=== PATIENT | female | born 2000 | race American Indian/Alaskan Native ===

== ENCOUNTER 2020-11-06 12:15 | Emergency (ER) | payer SELFPAY ==
[2020-11-06 12:23] VITALS: BP 114/72
--- NOTE | 2020-11-06 12:34 | Emergency Department Report ---
- General Chief Complaint: Medical Clearance Stated Complaint: CANT EAT Time Seen by Provider: 11/06/20 12:22 Source: patient Mode of arrival: Ambulatory Limitations: No Limitations - History of Present Illness Initial Comments: Patient is a 20-year-old female presents emergency room complaints of viral-like symptoms that began 6 days ago. She has associated sore throat, anterior neck discomfort, fatigue, generalized weakness, nausea, mild occasional dry cough. She states that she is only had one episode of vomiting during the last 6 days. She is able to tolerate p.o. intake. She states that she has a loss of appetite. She states that she lost her sense of smell and taste. She is still able to drink liquids. She states that she has not been wanting to eat food due to the lack of taste. She denies any fever, diarrhea, abdominal pain, chest pain, neck stiffness, headache shortness of breath. She has a past medical history of asthma. No allergies to medications. Last menstrual cycle last month. - Related Data Allergies Allergy/AdvReac Type Severity Reaction Status Date / Time No Known Allergies Allergy Unverified 02/19/20 18:43 ED Review of Systems ROS: Stated complaint: CANT EAT Other details as noted in HPI Comment: All other systems reviewed and negative ED Past Medical Hx - Past Medical History Previous Medical History?: Yes Hx Asthma: Yes - Social History Smoking Status: Never Smoker Substance Use Type: Marijuana ED Physical Exam - General Limitations: No Limitations General appearance: alert, in no apparent distress - Head Head exam: Present: atraumatic, normocephalic - Eye Eye exam: Present: normal appearance - ENT ENT exam: Present: normal orophraynx, mucous membranes moist, TM's normal bilaterally, normal external ear exam - Neck Neck exam: Present: normal inspection, full ROM. Absent: meningismus - Respiratory Respiratory exam: Present: normal lung sounds bilaterally. Absent: respiratory distress, wheezes, rales, rhonchi, stridor, chest wall tenderness, accessory muscle use, decreased breath sounds, prolonged expiratory - Cardiovascular Cardiovascular Exam: Present: regular rate, normal rhythm, normal heart sounds. Absent: systolic murmur, diastolic murmur, rubs, gallop - Neurological Exam Neurological exam: Present: alert, oriented X3 - Psychiatric Psychiatric exam: Present: normal affect, normal mood - Skin Skin exam: Present: warm, dry, intact ED Course Vital Signs 11/06/20 12:21 Temperature 99.6 F Pulse Rate 97 H Respiratory 20 Rate Blood Pressure 114/72 O2 Sat by Pulse 97 Oximetry ED Medical Decision Making - Medical Decision Making Patient is a 20-year-old female presents emergency room complaints of viral-like symptoms that began 6 days ago. She has associated sore throat, anterior neck discomfort, fatigue, generalized weakness, nausea, mild occasional dry cough. She states that she is only had one episode of vomiting during the last 6 days. She is able to tolerate p.o. intake. She states that she has a loss of appetite. She states that she lost her sense of smell and taste. She is still able to drink liquids. She states that she has not been wanting to eat food due to the lack of taste. She denies any fever, diarrhea, abdominal pain, chest pain, neck stiffness, headache shortness of breath. She has a past medical history of asthma. No allergies to medications. Last menstrual cycle last month. Vitals are normal. Normal oropharynx, no tonsillar hypertrophy or exudates, uvula is midline, no uvular edema or deviation, breath sounds are clear bilaterally, no wheezing, no rales, no rhonchi. Symptoms appear most consistent with viral-like illness. Patient is presenting with the symptoms during COVID-19 pandemic, discussed the possibility of COVID-19 with with patient, discussed return precautions, discussed outpatient testing, discussed self quarantine. Advised patient Please increase your fluid intake over the next several days. May take Tylenol as needed for fever or body aches. May take qooh-dzl-zvvnfxk cold symptom relief medication such as Mucinex or TheraFlu. Gargle with warm salt water. Follow-up with a primary care doctor fo r reexamination. Return to emergency room immediately for any new or worsening symptoms including but not limited to difficulty breathing, shortness of breath, severe chest pain, unable to tolerate by mouth intake, etc. Please self quarantine for 10 days from the onset of your symptoms. Please do not go out in public. If you are around others at home please wear a mask. If you need to cough or sneeze please do so in a napkin and immediately throw it away and immediately wash your hands. Wash your hands frequently. Wipe everything down. Recommend for you to get COVID-19 testing, may have this done at primary care doctor, health department, [facility],etc. Critical care attestation.: If time is entered above; I have spent that time in minutes in the direct care of this critically ill patient, excluding procedure time. ED Disposition Clinical Impression: Viral illness Disposition: DC-01 TO HOME OR SELFCARE Is pt being admited?: No Does the pt Need Aspirin: No Condition: Stable Instructions: COVID-19: How to Protect Yourself and Others - CDC, Viral Illness, Adult, Prevent the Spread of COVID-19 if You Are Sick - [facility] Additional Instructions: Please increase your fluid intake over the next several days. May take Tylenol as needed for fever or body aches. May take ovbo-oxb-tlemozv cold symptom relief medication such as Mucinex or TheraFlu. Gargle with warm salt water. Follow-up with a primary care doctor for reexamination. Return to emergency room immediately for any new or worsening symptoms including but not limited to difficulty breathing, shortness of breath, severe chest pain, unable to tolerate by mouth intake, etc. Please self quarantine for 10 days from the onset of your symptoms. Please do not go out in public. If you are around others at home please wear a mask. If you need to cough or sneeze please do so in a napkin and immediately throw it away and immediately wash your hands. Wash your hands frequently. Wipe everything down. Recommend for you to get COVID-19 testing, may have this done at primary care doctor, health department, [facility],etc. Referrals: [facility] [Provider Group] - 2-3 Days TOÑO MCKENZIE MD [Staff Physician] - 2-3 Days Time of Disposition: 12:33 Print Language: ITALIAN
== END 2020-11-06 13:54 | disposition home or self-care (01) ==
LOC: ED 12:15
DX: B34.9 Viral infection, unspecified (principal); J45.909 Unspecified asthma, uncomplicated; F12.10 Cannabis abuse, uncomplicated; Z79.899 Other long term (current) drug therapy
CPT/HCPCS: 99281

== ENCOUNTER 2020-12-06 18:35 | Emergency (ER) | payer SELFPAY ==
[2020-12-06 20:21] VITALS: BP 115/73
--- NOTE | 2020-12-06 21:05 | Emergency Department Report ---
ED ENT HPI - General Chief complaint: Earache Stated complaint: CAN'T HEAR Time Seen by Provider: 12/06/20 20:58 Source: patient Mode of arrival: Ambulatory Limitations: No Limitations - History of Present Illness Initial comments: 40-year-old female with no significant past history presents to the ER today with complaints of difficulty hearing from both ears. Patient states that initially started with the left ear about a week ago and has since progressed to the right. She reports a popping sensation in the ears. She reports mild pain to the preauricular areas of the ear. She denies any drainage from the ear. She denies any injury to the ear. She denies any associated URI symptoms, fever, chills or cough. MD complaint: other (difficulty hearing ) -: Gradual (1 week ago ) - Related Data Previous Rx's Medication Instructions Recorded Last Taken Type Amoxicillin/Potassium Clav 1 each PO Q12HR #14 tablet 12/06/20 Unknown Rx [Augmentin 875-125 Tablet] Cetirizine HCl/Pseudoephedrine 1 each PO Q12HR #20 tab.er.12h 12/06/20 Unknown Rx [Zyrtec-D Tablet] Fluticasone [Flonase] 2 spray NS QDAY #1 bottle 12/06/20 Unknown Rx methylPREDNISolone [Medrol 4MG 4 mg PO DAILY #1 tab.ds.pk 12/06/20 Unknown Rx DOSEPAK (21 tabs)] Allergies Allergy/AdvReac Type Severity Reaction Status Date / Time fish derived Allergy Itching Verified 12/06/20 19:50 ED Dental HPI - General Chief complaint: Earache Stated complaint: CAN'T HEAR Time Seen by Provider: 12/06/20 20:58 Source: patient Mode of arrival: Ambulatory Limitations: No Limitations - Related Data Previous Rx's Medication Instructions Recorded Last Taken Type Amoxicillin/Potassium Clav 1 each PO Q12HR #14 tablet 12/06/20 Unknown Rx [Augmentin 875-125 Tablet] Cetirizine HCl/Pseudoephedrine 1 each PO Q12HR #20 tab.er.12h 12/06/20 Unknown Rx [Zyrtec-D Tablet] Fluticasone [Flonase] 2 spray NS QDAY #1 bottle 12/06/20 Unknown Rx methylPREDNISolone [Medrol 4MG 4 mg PO DAILY #1 tab.ds.pk 12/06/20 Unknown Rx DOSEPAK (21 tabs)] Allergies Allergy/AdvReac Type Severity Reaction Status Date / Time fish derived Allergy Itching Verified 12/06/20 19:50 ED Review of Systems ROS: Stated complaint: CAN'T HEAR Other details as noted in HPI Comment: All other systems reviewed and negative Constitutional: denies: chills, fever Eyes: denies: eye pain, eye discharge, vision change ENT: ear pain. denies: throat pain, dental pain, hearing loss, epistaxis, congestion Respiratory: denies: cough, shortness of breath, SOB with exertion, SOB at rest, wheezing Cardiovascular: denies: chest pain, palpitations, dyspnea on exertion, edema, syncope, paroxysmal nocturnal dyspnea Gastrointestinal: denies: abdominal pain, nausea, vomiting, diarrhea, constipation, hematemesis, hematochezia Genitourinary: as per HPI. denies: frequency, hematuria, discharge, abnormal menses, dyspareunia Musculoskeletal: denies: back pain, joint swelling, arthralgia Skin: denies: rash, lesions, change in color, change in hair/nails Neurological: denies: headache, weakness, paresthesias Psychiatric: denies: anxiety, depression, auditory hallucinations, visual hallucinations, homicidal thoughts, suicidal thoughts Hematological/Lymphatic: denies: easy bleeding, easy bruising ED Past Medical Hx - Past Medical History Hx Asthma: Yes - Social History Smoking Status: Never Smoker - Medications Home Medications: Home Medications Medication Instructions Recorded Confirmed Last Taken Type Amoxicillin/Potassium Clav 1 each PO Q12HR #14 tablet 12/06/20 Unknown Rx [Augmentin 875-125 Tablet] Cetirizine HCl/Pseudoephedrine 1 each PO Q12HR #20 tab.er.12h 12/06/20 Unknown Rx [Zyrtec-D Tablet] Fluticasone [Flonase] 2 spray NS QDAY #1 bottle 12/06/20 Unknown Rx methylPREDNISolone [Medrol 4MG 4 mg PO DAILY #1 tab.ds.pk 12/06/20 Unknown Rx DOSEPAK (21 tabs)] ED Physical Exam - General Limitations: No Limitations General appearance: alert, in no apparent distress - Head Head exam: Present: atraumatic, normocephalic, normal inspection - Eye Eye exam: Present: normal appearance, PERRL, EOMI Pupils: Present: normal accommodation - ENT ENT exam: Present: normal exam - Expanded ENT Exam Expanded TM/Canal exam: Erythema: Right TM, Left TM, Bulging: Right TM, Left TM, Effusion: Right TM, Left TM Mouth exam: Present: normal external inspection - Neck Neck exam: Present: normal inspection, full ROM. Absent: lymphadenopathy - Respiratory Respiratory exam: Present: normal lung sounds bilaterally. Absent: respiratory distress - Cardiovascular Cardiovascular Exam: Present: regular rate, normal rhythm, normal heart sounds - GI/Abdominal GI/Abdominal exam: Present: soft. Absent: distended, tenderness, guarding, rebound - Back Exam Back exam: Present: normal inspection - Neurological Exam Neurological exam: Present: alert, oriented X3, CN II-XII intact, normal gait - Psychiatric Psychiatric exam: Present: normal affect, normal mood - Skin Skin exam: Present: intact ED Course Vital Signs 12/06/20 20:18 Temperature 99.1 F Pulse Rate 79 Respiratory 18 Rate Blood Pressure 115/73 [Left] O2 Sat by Pulse 98 Oximetry Critical care attestation.: If time is entered above; I have spent that time in minutes in the direct care of this critically ill patient, excluding procedure time. ED Disposition Clinical Impression: Suppurative otitis media of both ears Disposition: DC- TO HOME OR SELFCARE Is pt being admited?: No Does the pt Need Aspirin: No Condition: Stable Instructions: Otitis Media, Adult, Getp-kg-Ofct Additional Instructions: Take the medications as prescribed. Follow up with PCP in 1 week. Return to ED if worse. Prescriptions: Amoxicillin/Potassium Clav [Augmentin 875-125 Tablet] 1 each PO Q12HR #14 tablet Fluticasone [Flonase] 2 spray NS QDAY #1 bottle methylPREDNISolone [Medrol 4MG DOSEPAK (21 tabs)] 4 mg PO DAILY #1 tab.ds.pk Cetirizine HCl/Pseudoephedrine [Zyrtec-D Tablet] 1 each PO Q12HR #20 tab.er.12h Referrals: TOÑO MCKENZIE MD [Staff Physician] - 3-5 Days Time of Disposition: 21:07
== END 2020-12-06 22:00 | disposition home or self-care (01) ==
LOC: ED 18:35
DX: H66.43 Suppurative otitis media, unspecified, bilateral (principal); J45.909 Unspecified asthma, uncomplicated; Z79.899 Other long term (current) drug therapy; Z91.013 Allergy to seafood
CPT/HCPCS: 99281

== ENCOUNTER 2021-02-04 10:21 | Emergency (ER) | payer SELFPAY ==
[2021-02-04 10:42] VITALS: BP 108/56
--- NOTE | 2021-02-04 11:38 | Emergency Department Report ---
Chief Complaint: Urogenital-Female Stated Complaint: STD TESTING Time Seen by Provider: 02/04/21 11:14 - HPI History of Present Illness: 21-year-old -[place] female patient presents for screening STI testing today. She denies any vaginal discharge, dyspareunia, vaginal bleeding, dysuria/hematuria/urinary frequency, abdominal pain, or fever/chills/sweats. - Exam Vital Signs: Vital Signs 02/04/21 10:39 Temperature 97.9 F Pulse Rate 74 Respiratory 18 Rate Blood Pressure 108/56 O2 Sat by Pulse 97 Oximetry MSE screening note: Focused history and physical exam performed. Due to findings the following was ordered: ED Medical Decision Making - Medical Decision Making Patient here for screening STD testing. She denies any symptoms. Recommend patient follows up outpatient with the health department or clinic from the list provided. Her vitals are normal, she is well-appearing, she is stable for discharge home. Discussed signs and symptoms that should prompt immediate return to the emergency department in detail with patient who verbalized understanding. ED Disposition for MSE Clinical Impression: Screening for STD (sexually transmitted disease) Disposition: [facility] SCREENING EXAM-LEFT Is pt being admited?: No Condition: Stable Instructions: Safe Sex ED Physical Exam - General Limitations: No Limitations General appearance: alert, in no apparent distress - Head Head exam: Present: atraumatic, normocephalic - Eye Eye exam: Present: normal appearance - Respiratory Respiratory exam: Absent: respiratory distress - Cardiovascular Cardiovascular Exam: Present: regular rate - GI/Abdominal GI/Abdominal exam: Present: soft. Absent: distended, tenderness, guarding, rebound, rigid - Neurological Exam Neurological exam: Present: alert, oriented X3, normal gait - Psychiatric Psychiatric exam: Present: normal affect, normal mood - Skin Skin exam: Present: warm, dry, intact, normal color. Absent: rash ED Review of Systems ROS: Stated complaint: STD TESTING Other details as noted in HPI Constitutional: denies: chills, diaphoresis, fever, malaise ENT: denies: throat pain Gastrointestinal: denies: abdominal pain, nausea, vomiting, diarrhea Genitourinary: denies: urgency, dysuria, frequency, hematuria, discharge, abnormal menses, dyspareunia Musculoskeletal: denies: joint swelling, arthralgia Skin: denies: rash, lesions
== END 2021-02-04 11:43 | disposition left against medical advice (07) ==
LOC: ED 10:21
DX: Z20.2 Contact with and (suspected) exposure to infections with a predominantly sexual mode of transmission (principal); Z53.21 Procedure and treatment not carried out due to patient leaving prior to being seen by health care provider